=== PATIENT | female | born 1990 | race Caucasian/White ===

== ENCOUNTER → 2017-05-01 | Outpatient (CLI) | payer BC ==
--- NOTE | 2017-05-01 08:43 | DIAGNOSTIC IMAGING REPORT ---
LEFT SHOULDER MIN 2 VIEWS HISTORY: 26 years-old Female LEFT SHOULDER PAIN without reported trauma COMPARISON: None available TECHNIQUE: 3 views of the left shoulder FINDINGS: No acute fracture, dislocation or significant degenerative changes. Acromium has a curved undersurface. Imaged left lung appears clear. Soft tissues are unremarkable without radiopaque foreign body. IMPRESSION: No acute fracture or dislocation. The above report was generated using voice recognition software. It may contain grammatical, syntax or spelling errors. Electronically signed by: Benitez Canales M.D. 05/01/2017 8:41 AM Dictated Date/Time: 05/01/2017 8:40 AM
== END | disposition home or self-care (01) ==
LOC: C.RDSM 08:01
PROVIDERS: ATTEND Family Medicine
DX: M25.512 Pain in left shoulder (principal)

== ENCOUNTER → 2017-05-07 | Outpatient (CLI) | payer BC ==
[~2017-05-07] MED LIST: GADAVIST IV PRN
--- NOTE | 2017-05-07 12:46 | DIAGNOSTIC IMAGING REPORT ---
LEFT INJECTION SHOULDER PRE MRI CLINICAL HISTORY: 26 years-old Female presenting with L SHOULDER PAIN, history of labral tear 10 years ago and recent fall downstairs. COMPARISON: Plain radiographs of the left shoulder from 05/01/2017. PROCEDURE: The risks, benefits, and alternatives to the procedure were discussed with the patient. Written informed consent was obtained. The patient was placed supine on the fluoroscopy table, and a left shoulder injection was performed under fluoroscopic guidance. The area was prepped and draped in the usual aseptic fashion. The skin and soft tissues anesthetized with local 1% lidocaine. The left shoulder joint was accessed utilizing a 22-gauge 2.5 inch needle, and approximately 10 cc of a mixture of gadolinium contrast, Optiray 300, and saline was injected into the joint space under fluoroscopic guidance. There was normal distention of the capsule. The procedure was well tolerated and without immediate complication. The patient was then transferred to MRI for MR arthrography. Fluoroscopy dosage (mGy): Not available. Fluoroscopy time: 52 seconds. Number of fluoroscopic spot images: 0. IMPRESSION: Successful injection of the left shoulder under fluoroscopic guidance. Electronically signed by: Ricky Vasquez M.D. 05/07/2017 12:44 PM Dictated Date/Time: 05/07/2017 12:42 PM
--- NOTE | 2017-05-07 13:09 | DIAGNOSTIC IMAGING REPORT ---
LEFT UPPER EXTREMITY JOINT W/ CLINICAL HISTORY: 26 years-old Female presenting with LEFT SHOULDER PAIN, history of labral tear 10 years ago not requiring surgical fixation, recent re-injury. TECHNIQUE: Multisequence, multiplanar MR imaging of the left shoulder was performed after the administration of intra-articular contrast. IV contrast: None. COMPARISON: Plain radiographs of the left shoulder from 05/01/2017.. FINDINGS: No bony edema. Normal glenohumeral articulation without evidence of subluxation. Cartilage preserved. Contrast distends the left shoulder joint. Evidence of stripping of the anterior joint capsule insertion onto the anterior glenoid. Normal insertion of the posterior joint capsule. Irregularity of the anterior superior labrum at the 1:00 position at the biceps labral complex. Remainder of labrum appears intact. Long head of the biceps tendon may be congenitally splint but is well seated within the intertubercular groove. No passage of T1 hyperintense intra-articular contrast through the rotator cuff to suggest tear. Trace fluid within the subacromial subdeltoid bursa likely relates to injection of contrast. No abnormal signal intensity within the rotator cuff tendons. Acromioclavicular joints congruent. Concave undersurface of the acromion without anterior spurring. Normal muscle bulk. No atrophy. IMPRESSION: 1. Evidence of stripping of the anterior joint capsule insertion onto the anterior glenoid, possibly from prior anterior dislocation. 2. Irregularity of the anterior superior labrum near the biceps labral complex, which may represent a chronic abnormality. 3. No evidence of rotator cuff tear. Electronically signed by: Ricky Vasquez M.D. 05/07/2017 1:08 PM Dictated Date/Time: 05/07/2017 12:55 PM
== END | disposition home or self-care (01) ==
LOC: C.MRIBC 10:45
PROVIDERS: ATTEND Family Medicine
DX: M25.512 Pain in left shoulder (principal)